=== PATIENT | female | born 1930 | race Caucasian/White ===

== ENCOUNTER 2020-04-25 09:34 | Inpatient (IN) | payer OTHER ==
[~2020-04-25] VITALS: Ht 165.1 cm; Wt 104.3 kg
[2020-04-25] MEDS ORDERED: REMINYL8 MG (10:07)
[2020-04-25] MEDS ORDERED: VASOTEC2.5 MG (10:07)
[2020-04-25] MEDS ORDERED: GABAPENTIN100 M2 (10:07)
[2020-04-25] MEDS ORDERED: CELEXA10 MG (10:07)
[2020-04-30] MEDS ORDERED: MAXIMUM D3325 MCG (15:39)
[2020-05-06] MEDS ORDERED: QUETIAPINE FUMA25 MG PO (14:03)
[2020-05-06] MEDS ORDERED: AMLODIPINE BESY10 MG PO (14:03)
[2020-05-06] MEDS ORDERED: GABAPENTIN100 MG PO (14:03)
[2020-05-06] MEDS ORDERED: LOSARTAN POTAS100 MG PO (14:03)
[2020-05-06] MEDS ORDERED: LASIX20 MG PO (14:03)
== END 2020-05-06 17:33 | disposition home or self-care (01) | DRG 193 ==
LOC: ER 09:34 → SURH 18:07 → MEDJ 18:07
PROVIDERS: ADMIT Internal Medicine; ATTEND Internal Medicine
PROC: 4A033R1 Measurement of Arterial Saturation, Peripheral, Percutaneous Approach (ICD-10-PCS; principal; 2020-04-25)
PROC: 3E0F7GC Introduction of Other Therapeutic Substance into Respiratory Tract, Via Natural or Artificial Opening (ICD-10-PCS; 2020-04-25)
PROC: CB2YYZZ Tomographic (Tomo) Nuclear Medicine Imaging of Respiratory System using Other Radionuclide (ICD-10-PCS; 2020-04-25)
PROC: BW21ZZZ Computerized Tomography (CT Scan) of Abdomen and Pelvis (ICD-10-PCS; 2020-04-28)
DX: J18.9 Pneumonia, unspecified organism (principal); A41.9 Sepsis, unspecified organism; J98.11 Atelectasis; N39.0 Urinary tract infection, site not specified; I10 Essential (primary) hypertension; G30.8 Other Alzheimer's disease; F02.80 Dementia in other diseases classified elsewhere, unspecified severity, without behavioral disturbance, psychotic disturbance, mood disturbance, and anxiety; R09.02 Hypoxemia; Z74.01 Bed confinement status; B96.20 Unspecified Escherichia coli [E. coli] as the cause of diseases classified elsewhere